=== PATIENT | female | born 1950 | race Caucasian/White ===

== ENCOUNTER 2017-11-11 11:36 | Day surgery (SDC) | payer MEDICARE, BC ==
[~2017-11-11 11:36] MED LIST: Buffered Lidocaine 0.9% SYRIN* 5 ML/SYR SYRINGE INTRADERM ONE; Dexamethasone IV* 4 MG/ML 1 ML (4 MG) IV SLOW PU ONE; Famotidine IV* 10 MG/ML 2 ML (20 mg) IV ONE
[2017-11-11] MEDS ORDERED: Dexamethasone IV* 4 MG/ML 1 ML (4 MG) ONE (11:48)
[2017-11-11] MEDS ORDERED: Famotidine IV* 10 MG/ML 2 ML (20 mg) ONE (11:48)
[2017-11-11] MEDS ORDERED: Buffered Lidocaine 0.9% SYRIN* 5 ML/SYR SYRINGE ONE (11:48)
[2017-11-11] MEDS ORDERED: Ibuprofen TAB* 600 MG PO PRN (12:51)
[2017-11-11] MEDS ORDERED: DiMENhydriNATE IV* 50 MG/ML VIAL IV PUSH PRN (12:51)
[2017-11-11] MEDS ORDERED: Naloxone* 0.4 MG/ML 1 ML VIAL IV PRN (12:51)
[2017-11-11] MEDS ORDERED: HYDROcodone/ACETAMIN 5-325 MG* 1 TAB PO PRN (12:51)
[2017-11-11] MEDS ORDERED: Ondansetron INJ* 2 MG/ML VIAL IV PRN (12:51)
[2017-11-11] MEDS ORDERED: fentaNYL* 50 MCG/ML 2 ML VIAL (100 MCG VIAL) IV PRN (12:51)
[2017-11-11] MEDS ORDERED: Acetaminophen TAB* 325 MG PO PRN (12:51)
[2017-11-11] MEDS ORDERED: Midazolam* 1 MG/ML 2 ML VIAL (2 MG) ONE (13:24)
[2017-11-11] MEDS ORDERED: fentaNYL* 50 MCG/ML 2 ML VIAL (100 MCG VIAL) ONE (13:24)
[2017-11-11] MEDS ORDERED: Lidocaine 2% EPI 1:200000 MPF*10-20 ML VIAL ONE (14:42)
[2017-11-11] MEDS ORDERED: Oxymetazoline 0.05% NASAL SPR* 15 ML BTL ONE (14:42)
[2017-11-11] MEDS ORDERED: Triamcinolone Acetonide* 40 MG/ML 1 ML VIAL ONE (14:42)
[2017-11-11] MEDS ORDERED: Gelatin ADSORBABLE (OPHTH)* OPHTH.FILM ONE (14:42)
[2017-11-11] MEDS ORDERED: Gelfoam 12-7 ADSORBABL SPONGE* 1 EA SPONGE ONE (14:42)
[2017-11-11] MEDS ORDERED: Labetalol IV* 5 MG/ML 20 ML VIAL IV PUSH ONE ×2 (15:30→17:32)
[2017-11-11] MEDS ORDERED: Labetalol IV* 5 MG/ML 20 ML VIAL ONE (15:38)
[2017-11-11] MEDS ORDERED: diPHENhydraMINE IV* 50 MG/ML 1 ml VIAL (BENADRYL) ONE (15:50)
[2017-11-11] MEDS ORDERED: hydrALAZINE IV* 20 MG/ML VIAL ONE (17:10)
[2017-11-11] MEDS ORDERED: hydrALAZINE IV* 20 MG/ML VIAL IV SLOW PU ONE (17:13)
[2017-11-11] MEDS ORDERED: Gabapentin CAP(*) 300 MG PO ONE (17:32)
[2017-11-11] MEDS ORDERED: Gabapentin CAP(*) 300 MG ONE (17:34)
[2017-11-11 18:26] VITALS: BP 140/62
--- NOTE | 2017-11-12 07:41 | OP ---
DATE OF OPERATION: 11/11/17 - SDS DATE OF : 46 SURGEON: Dr. Romero. PRE-OP DIAGNOSIS: Chronic sinusitis after dental implants. POST-OP DIAGNOSIS: Chronic sinusitis after dental implants. OPERATIVE PROCEDURE: Video endoscopic maxillary antrostomy, removal of tissue, and anterior ethmoidectomy. BRIEF HISTORY: This 66-year-old female with persistent and purulent rhinorrhea , not improving with medical management, previous dental implants may have been the etiology of the infection. DESCRIPTION OF PROCEDURE: The patient was taken to the operating room. General anesthetic was given. The patient intubated with LMA. Nose was decongested with Afrin placed pledgets. We turned our attention to the right side. The uncinate process, middle turbinate area, and ethmoid bulla area was infiltrated with 2% lidocaine without epinephrine. Subsequently, the uncinate process was peeled out anteriorly and microshaved away. Antrostomy was enlarged , copious amounts of purulent material was suctioned out. Hyperplastic mucosa within the antrum was then microshaved away. Cultures were sent from the antrum. Then, we turned our attention to the ethmoidal bulla, resecting it out and coursing superior into the nasofrontal duct and laterally toward the lamina papyracea. I packed the right maxillary sinus with iodoform gauze of 0.25 inch. a small Joaquim pack was then placed to keep it in place. Subsequently, the patient was then awakened and sent to Recovery in stable condition. Instrument and sponge counts were correct. Blood loss was minimal. [id number]/[facility] #: [id number] DANNY
== END 2017-11-11 18:15 | disposition home or self-care (01) ==
LOC: OR 11:36
PROVIDERS: ATTEND Otolaryngology
DX: J32.8 Other chronic sinusitis (principal); I10 Essential (primary) hypertension; Z87.891 Personal history of nicotine dependence; M06.9 Rheumatoid arthritis, unspecified
CPT/HCPCS: 87070; 87073; 87076; 87077; 87186; 87205; A9270-GY; J0360; J1100; J1200; J2250; J3010; J3301

== ENCOUNTER 2023-11-09 05:58 | Observation (INO) ==
[~2023-11-09 05:58] MED LIST changes: -Buffered Lidocaine 0.9% SYRIN* 5 ML/SYR SYRINGE INTRADERM ONE; -Dexamethasone IV* 4 MG/ML 1 ML (4 MG) IV SLOW PU ONE; -Famotidine IV* 10 MG/ML 2 ML (20 mg) IV ONE; +NS 0.45% 1000 ml BAG 1,000 ML IV SCH; +Naloxone 0.4 mg VIAL 0.4 mg/ml 1 ml VIAL IV PRN; +Ondansetron 4 mg VIAL 2 MG/ML 2 ml VIAL IV PRN
[2023-11-09] MEDS ORDERED: Phenylephrine IV 10 MG/ML 1 ml VIAL ONE (06:42)
[2023-11-09] MEDS ORDERED: Rocuronium 50 mg VIAL 10 mg/ml 5 ml VIAL (50 mg) ONE (06:45)
[2023-11-09] MEDS ORDERED: Propofol 10 MG/ML 20 ML BTL ONE (06:54)
[2023-11-09] MEDS ORDERED: Ondansetron 4 mg VIAL 2 MG/ML 2 ml VIAL ONE (06:54)
[2023-11-09] MEDS ORDERED: Dexamethasone IV 4 MG/ML VIAL 1 ml VIAL ONE (06:54)
[2023-11-09] MEDS ORDERED: Lidocaine 2% PF 5 ML VIAL ONE (06:58)
[2023-11-09] MEDS ORDERED: ceFAZolin 2 GM PREMIX 2 GM/50 ML BAG ONE (07:01)
[2023-11-09] MEDS ORDERED: Lidocaine 1% w EPI 1:100,000 MDV 20 ML VIAL ONE (07:05)
[2023-11-09] MEDS ORDERED: Thrombin 5,000 UNITS 1 APPLIC KIT - topical use - TOPICAL ONE (07:06)
[2023-11-09] MEDS ORDERED: ceFAZolin VIAL VIAL ONE (07:06)
[2023-11-09 07:21] LABS: Rapid COVID-19 Molecular Undetected (Undetected)
[2023-11-09] MEDS ORDERED: Artificial Tear OPHTH.OINT 3.5 GM ONE (07:28)
[2023-11-09] MEDS ORDERED: HYDROmorphone 0.5 MG/0.5 ML SYRINGE ONE ×2 (07:51→08:31)
[2023-11-09] MEDS ORDERED: Phenol 1.4% Throat Spray BTL MT PRN (09:05)
[2023-11-09] MEDS ORDERED: Calcium Carb (TUMS) 500 mg CHEW TAB PO PRN (09:05)
[2023-11-09] MEDS ORDERED: Ondansetron 4 mg VIAL 2 MG/ML 2 ml VIAL IV PRN (09:05)
[2023-11-09] MEDS ORDERED: Benzocaine/Menthol LOZ MT PRN (09:05)
[2023-11-09] MEDS ORDERED: HYDROcodone/ACETAMIN 5/325 mg TAB PO PRN (09:05)
[2023-11-09] MEDS ORDERED: Dextran 70/Hypromellose Tears Eye Drops 15 ml BTL (for Artificials Tears) BOTH EYES PRN (09:05)
[2023-11-09] MEDS ORDERED: Senna TAB 8.6 mg TAB PO PRN (09:05)
[2023-11-09] MEDS ORDERED: Morphine 2 MG/ML SYRINGE IV PRN (09:05)
[2023-11-09] MEDS ORDERED: fentaNYL 100 mcg/2 ml 50 MCG/ML VIAL ONE (09:16)
[2023-11-09] MEDS: fentaNYL 100 mcg/2 ml 50 MCG/ML VIAL IV PRN (09:18)
[2023-11-09] MEDS: Lactated Ringers 1000 ml BAG 1,000 ML IV SCH ×2 (11:53→12:28)
[2023-11-09] MEDS: Scopolamine 1 mg/72hr PATCH TRANSDERM ONE (12:29)
[2023-11-09] MEDS: Famotidine IV 10 MG/ML 2 ml VIAL (20 mg) IV SLOW PU ONE (12:30)
[2023-11-09] MEDS: Buffered Lidocaine 1% SYRIN 1 ml INTRADERM ONE (12:30)
[2023-11-09] MEDS: Acetaminophen IV 1 GM/100ML 1,000 MG/100 ML BAG IV ONE (12:30)
[2023-11-09] MEDS: HYDROcodone/ACETAMIN 5/325 mg TAB PO PRN (14:50)
[2023-11-09] MEDS: DULoxetine DR 60 mg CAP PO SCH (21:44)
[2023-11-10 10:09] VITALS: BP 115/62
== END 2023-11-10 10:09 | disposition home or self-care (01) ==
LOC: SSU 05:58 → OR 05:58
PROVIDERS: ADMIT Neurological Surgery; ATTEND Neurological Surgery